=== PATIENT | male | born 1965 | race Caucasian/White ===

== ENCOUNTER 2020-09-28 14:22 | Emergency (ER) | payer OTHER ==
[~2020-09-28 14:22] MED LIST: PROTONIX 40 MG40 M1 PO
[2020-09-28] MEDS ORDERED: NAPROSYN500 MG PO (16:00)
[2020-09-28] MEDS ORDERED: CYCLOBENZAPRINE10 MG PO (16:00)
== END 2020-09-28 16:12 | disposition home or self-care (01) ==
LOC: ER1 14:22
DX: S16.1XXA Strain of muscle, fascia and tendon at neck level, initial encounter (principal); S29.012A Strain of muscle and tendon of back wall of thorax, initial encounter; I10 Essential (primary) hypertension; F17.200 Nicotine dependence, unspecified, uncomplicated; V49.40XA Driver injured in collision with unspecified motor vehicles in traffic accident, initial encounter
CPT/HCPCS: 72125; 72128; 96372; 99283; 99284; J1885

== ENCOUNTER → 2021-08-10 | Outpatient (CLI) | payer BC ==
[~2021-08-10] MED LIST changes: +CYCLOBENZAPRINE10 MG PO; +NAPROSYN500 MG PO
== END ==
LOC: EMI 10:17
DX: G50.0 Trigeminal neuralgia (principal); R93.0 Abnormal findings on diagnostic imaging of skull and head, not elsewhere classified
CPT/HCPCS: 70551